=== PATIENT | female | born 1960 | race Caucasian/White ===

== ENCOUNTER 2018-04-30 20:32 | Emergency (ER) | payer MEDICAID ==
[2018-04-30 21:08] VITALS: PULSE 74; TEMP 98.3
--- NOTE | 2018-04-30 22:48 | ED PDOC ---
HPI: Abdomen Time Seen by Provider: 04/30/18 22:44 Chief Complaint (Nursing): Abdominal Pain Chief Complaint (Provider): abd pain History Per: Patient (58 y/o female h/o repair of abdominal wall hernia 7 years ago here with N/V/abdominal pain in area mid abdomen on and off x 4 days. States she recently completed 10 days of antibiotics for sinus infection otherwise.) Past Medical History Reviewed: Historical Data, Nursing Documentation, Vital Signs Vital Signs: Last Vital Signs Temp 98.3 F 04/30/18 21:05 Pulse 74 04/30/18 21:05 Resp 18 04/30/18 21:05 BP 167/83 H 04/30/18 21:05 Pulse Ox 99 04/30/18 21:05 - Medical History PMH: HTN - Surgical History Surgical History: Hernia Repair - Family History Family History: States: No Known Family Hx - Immunization History Hx Tetanus Toxoid Vaccination: No Hx Influenza Vaccination: No Hx Pneumococcal Vaccination: No - Home Medications Home Medications: Ambulatory Orders Medication Instructions Recorded Albuterol Sulfate [Ventolin Hfa] 2 puff IH Q6H PRN #0 ml 05/23/15 Cholecalciferol [Vitamin D] 2,000 unit PO DAILY #0 tab 05/23/15 Lisinopril/Hydrochlorothiazide 1 tab PO DAILY #0 tab 05/23/15 [Lisinopril-Hctz 10-12.5 mg Tab] predniSONE [Prednisone] 40 mg PO DAILY #10 tab 05/23/15 Docusate Sodium [Colace] 100 mg PO BID #20 capsule 05/01/18 Famotidine [Pepcid] 20 mg PO BID #10 tab 05/01/18 Phosphate Enema [Fleet Enema 135 135 ml RC ONCE PRN #1 nma 05/01/18 Ml] - Allergies Allergies/Adverse Reactions: Allergies Allergy/AdvReac Type Severity Reaction Status Date / Time No Known Allergies Allergy Verified 08/21/14 15:43 Review of Systems ROS Statement: Except As Marked, All Systems Reviewed And Found Negative Physical Exam - Reviewed Nursing Documentation Reviewed: Yes Vital Signs Reviewed: Yes - Physical Exam Appears: Positive for: Well, Non-toxic, No Acute Distress Head Exam: Positive for: ATRAUMATIC, NORMAL INSPECTION, NORMOCEPHALIC Skin: Positive for: Normal Color, Warm, DRY Eye Exam: Positive for: EOMI, Normal appearance, PERRL ENT: Positive for: Normal ENT Inspection Neck: Positive for: Normal, Painless ROM Cardiovascular/Chest: Positive for: Regular Rate, Rhythm Respiratory: Positive for: CNT, Normal Breath Sounds Gastrointestinal/Abdominal: Positive for: Normal Exam, Soft, Tenderness (epigastric/ mid abdominal tenderness.) Back: Positive for: Normal Inspection Extremity: Positive for: Normal ROM Neurologic/Psych: Positive for: Alert, Oriented - Laboratory Results Result Diagrams: 04/30/18 23:24 04/30/18 23:24 - ECG O2 Sat by Pulse Oximetry: 99 - Progress ED Course And Treament: PEPCID 20 MG IV X 1 DOSE ZOFRAN 4 MG IV X 1 DOSE NS 1 LITER 500ML IV PER HOUR PREPPED FOR CT ABD/PELVIS BLADDER SCAN NOTES 299 CC URINE. PATIENT STATES SHE HAD TO HOLD URINE DURING TEST BUT WOULD LIKE TO URINATE AND HAS NO DIFFICULTY DOING SO. URINE DIP (+) TRACE LEUK (-) BLOOD (-) NITRATE URINE CX SENT RESULTS D/W PATIENT WHO FEELS IMPROVED. Medical Decision Making Medical Decision Making: Time: 2:08 CT abd/Pelvis COMMENTS: The liver is of uniform attenuation without mass or defect. There is no intra or extrahepatic biliary ductal dilatation. The spleen is normal. The gallbladder is within normal limits. The pancreas is of normal contour and attenuation characteristics. There is no evidence of adrenal mass. Both kidneys demonstrate prompt and equal nephrograms. The kidneys are normal in size, shape and configuration. There is no evidence of renal or ureteral mass. No renal or ureteral calculi are identified. There is no hydroureter or hydronephrosis. No evidence for appendicitis. There is no bowel wall thickening. No evidence for small or large bowel obstruction. There is no evidence of abdominal ascites or lymphadenopathy. Moderate amount of fecal residue is noted in the large bowel. There is no evidence of intrinsic or extrinsic bladder mass. There is no pelvic ascites or lymphadenopathy. Distended bladder. Images of the lung bases show no evidence of pleural or parenchymal mass. There are no pleural effusions. The bony structures are free of lytic or blastic lesions. IMPRESSION: Moderate constipation. Distended bladder suggestive of retention. No evidence of bowel obstruction. No evidence of acute abdominal or pelvic pathology. Disposition - Clinical Impression Clinical Impression: Gastritis, Constipation - Patient ED Disposition Is Patient to be Admitted: No - Disposition Disposition: Routine/Home Disposition Time: 03:54 Condition: FAIR Prescriptions: Docusate Sodium [Colace] 100 mg PO BID #20 capsule Famotidine [Pepcid] 20 mg PO BID #10 tab Phosphate Enema [Fleet Enema 135 Ml] 135 ml RC ONCE PRN #1 nma PRN Reason: Constipation Instructions: Gastritis, Constipation in Adults Forms: [facility] ED School/Work Excuse
[2018-04-30] MEDS ORDERED: Iohexol 240 (50 ml) PO ONE (22:50)
[2018-04-30] MEDS ORDERED: Sodium Chloride 0.9% 1,000 ML IV STA (22:50)
[2018-04-30] MEDS ORDERED: Iohexol 240 (50 ml) ONE (23:11)
[2018-04-30 23:36] LABS: ALB/GLOB RATIO 1.1 (1.0-2.1); ALBUMIN 4.2 g/dL (3.5-5.0); ALT/SGPT 35 U/L (9-52); AST/SGOT 30 U/L (14-36); BLOOD UREA NITROGEN 19 mg/dl (7-17); CALCIUM 9.6 mg/dL (8.4-10.2); GFR NON-AFRICAN AMERICAN > 60; LIPASE 103 U/L (23-300)
[2018-04-30 23:59] LABS: BASO % 0.3 % (0.0-2.0); EOS # 0.8 K/uL (0.0-0.7); EOS % 7.3 % (0.0-4.0); HEMOGLOBIN 12.7 g/dL (12.0-16.0); LYMPH # 3.7 K/uL (1.0-4.3); LYMPH % 34.6 % (20.0-40.0); MEAN CORPUSCULAR HEMOGLOBIN 30.3 pg (27.0-31.0); MEAN CORPUSCULAR HGB CONC 32.9 g/dL (33.0-37.0); MEAN PLATELET VOLUME 7.4 fl (7.2-11.7); MONO # 0.6 K/uL (0.0-0.8); MONO % 5.8 % (0.0-10.0); NEUT # 5.6 K/uL (1.8-7.0); RBC 4.2 Mil/uL (3.80-5.20); RED CELL DISTRIBUTION WIDTH 12.1 % (11.5-14.5); WHITE BLOOD COUNT 10.8 K/uL (4.8-10.8)
[2018-05-01] MEDS ORDERED: Iohexol 300 100 ML IJ ONE (01:12)
[2018-05-01] MEDS ORDERED: Sodium Chloride 0.9% 50 ML IV ONE (01:12)
[2018-05-01 05:10] VITALS: BP 119/78; RESP 16; O2SAT 100
--- NOTE | 2018-05-01 13:05 | CT ---
Date of service: 05/01/2018 PROCEDURE: CT Abdomen and Pelvis with contrast HISTORY: r/o sbo COMPARISON: 09/18/2014 TECHNIQUE: Contrast dose: 90 mL Omnipaque 300 Radiation dose: Total exam DLP = 285.53 mGy-cm. This CT exam was performed using one or more of the following dose reduction techniques: Automated exposure control, adjustment of the mA and/or kV according to patient size, and/or use of iterative reconstruction technique. FINDINGS: LOWER THORAX: Unremarkable. LIVER: Unremarkable. No gross lesion or ductal dilatation. GALLBLADDER AND BILE DUCTS: Unremarkable. PANCREAS: Unremarkable. No gross lesion or ductal dilatation. SPLEEN: Unremarkable. ADRENALS: Unremarkable. No mass. KIDNEYS AND URETERS: Unremarkable. No hydronephrosis. No solid mass. VASCULATURE: Unremarkable. No aortic aneurysm. No aortic atherosclerotic calcification or mural plaque present. BOWEL: Mild retained feces. Possible constipation. APPENDIX: Normal appendix. PERITONEUM: Unremarkable. No free fluid. No free air. LYMPH NODES: Unremarkable. No enlarged lymph nodes. BLADDER: Unremarkable. REPRODUCTIVE: Unremarkable uterus BONES: No acute fracture. OTHER FINDINGS: None. IMPRESSION: Retained feces. Possible constipation. No evidence of bowel obstruction. No other significant abnormality is identified. The preliminary findings for this examination were reported by [facility] at 2:08 a.m. on 05/01/2018. There is concurrence of this report with the preliminary findings.
== END 2018-05-01 04:09 | disposition home or self-care (01) ==
LOC: H.ER 20:32
DX: K29.70 Gastritis, unspecified, without bleeding (principal); K59.00 Constipation, unspecified; I10 Essential (primary) hypertension; Z79.899 Other long term (current) drug therapy
CPT/HCPCS: 74177; 80053; 81025; 83690; 85025; 96374; 96375; 99284; J2405; J7030; Q9966; Q9967

== ENCOUNTER 2018-06-07 21:06 | Emergency (ER) | payer MEDICAID ==
--- NOTE | 2018-06-07 22:36 | ED PDOC ---
HPI: CCC, URI, Sore Throat Time Seen by Provider: 06/07/18 21:19 Chief Complaint (Nursing): ENT Problem Chief Complaint (Provider): swollen glands and sore throat History Per: Patient History/Exam Limitations: no limitations Onset/Duration Of Symptoms: Days (x3) Current Symptoms Are (Timing): Still Present Location Of Pain: Throat Associated Symptoms: Sore Throat Additional Complaint(s): Analia Reeves is a 58 year old female, with a past medical history of HTN, who presents to the emergency department for evaluation of swollen glands and sore throat onset for x3 days. Patient states sore throat is better because she's been eating a lot of garlic. Patient reports at 14:30 she was cooking when she began feeling pain to the right side of her upper neck that radiates down her right arm and upper part of her back. Patient also reports a pain "in her lungs" which makes it more atypical to raise her arm above her head and states she feels her arm "more lazy than the other arm." She denies any significant weakness or numbness, vision changes or slurred speech. No further medical complaints. PMD: Fadi Shook Past Medical History Reviewed: Historical Data, Nursing Documentation, Vital Signs Vital Signs: Last Vital Signs Temp 98.8 F 06/07/18 21:11 Pulse 90 06/07/18 21:11 Resp 16 06/07/18 21:11 BP 129/80 06/07/18 21:11 Pulse Ox 98 06/07/18 21:11 - Medical History PMH: HTN - Surgical History Surgical History: Hernia Repair - Family History Family History: States: Unknown Family Hx - Immunization History Hx Tetanus Toxoid Vaccination: No Hx Influenza Vaccination: No Hx Pneumococcal Vaccination: No - Home Medications Home Medications: Ambulatory Orders Medication Instructions Recorded Albuterol Sulfate [Ventolin Hfa] 2 puff IH Q6H PRN #0 ml 05/23/15 Cholecalciferol [Vitamin D] 2,000 unit PO DAILY #0 tab 05/23/15 Lisinopril/Hydrochlorothiazide 1 tab PO DAILY #0 tab 05/23/15 [Lisinopril-Hctz 10-12.5 mg Tab] predniSONE [Prednisone] 40 mg PO DAILY #10 tab 05/23/15 Docusate Sodium [Colace] 100 mg PO BID #20 capsule 05/01/18 Famotidine [Pepcid] 20 mg PO BID #10 tab 05/01/18 Phosphate Enema [Fleet Enema 135 135 ml RC ONCE PRN #1 nma 05/01/18 Ml] Cyclobenzaprine [Cyclobenzaprine 10 mg PO BID #15 tab 06/08/18 HCl] Ibuprofen [Motrin Tab] 600 mg PO Q6 #30 tab 06/08/18 - Allergies Allergies/Adverse Reactions: Allergies Allergy/AdvReac Type Severity Reaction Status Date / Time No Known Allergies Allergy Verified 08/21/14 15:43 Review of Systems ROS Statement: Except As Marked, All Systems Reviewed And Found Negative Eyes: Negative for: Vision Change Musculoskeletal: Positive for: Neck Pain (right side), Arm Pain (right), Back Pain (upper ) Neurological: Negative for: Weakness, Numbness, Other (slurred speech) Physical Exam - Reviewed Nursing Documentation Reviewed: Yes Vital Signs Reviewed: Yes - Physical Exam Appears: Positive for: No Acute Distress Head Exam: Positive for: ATRAUMATIC, NORMAL INSPECTION, NORMOCEPHALIC Skin: Positive for: Normal Color, Warm, Dry Eye Exam: Positive for: Normal appearance, EOMI, PERRL ENT: Positive for: Normal ENT Inspection Neck: Positive for: Normal, Painless ROM, Supple Cardiovascular/Chest: Positive for: Regular Rate, Rhythm. Negative for: Murmur Respiratory: Positive for: Normal Breath Sounds. Negative for: Respiratory Distress Gastrointestinal/Abdominal: Positive for: Normal Exam, Soft. Negative for: Tenderness, Guarding, Rebound Back: Positive for: Other (Tenderness to palpation to posterior deltoid and upper parathoracic musculature) Extremity: Positive for: Normal ROM (Full ROM of right arm with no neurovascular deficits). Negative for: Tenderness, Deformity, Swelling Neurologic/Psych: Positive for: Alert, insulation nozzleman II-XII (intact), Oriented (x3), Cerebellar Tests (normal), Gait (steady). Negative for: Motor/Sensory Deficits, Aphasia, Facial Droop - ECG O2 Sat by Pulse Oximetry: 98 (RA) Pulse Ox Interpretation: Normal Medical Decision Making Medical Decision Making: Time: 21:19 A/P: 65 y/o female with history of HTN presenting with sore throat. Well appearing with normal vitals. Presentation most consistent with musculoskeletal pain, URI or viral pharyngitis. Presentation not consistent with acute CVA or dissection. Patient was concerned she had "walking pneumonia." Ordered CXR, rapid strep and treat symptomatically Initial Plan: --Chest two views (PA/LAT) [RAD] --Flexeril 10 mg PO --Tylenol 325 mg tab 600 mg PO --Rapid Strep Group A Antigen --Reevaluation 0000 --Workup negative --Patient has previous diagnosis of cervical radiculopathy, possibly acute on chronic presentation --Will advise NSAIDs, ice, rest, and followup with PMD and/or orthopedics --Advised to return to the ER if symptoms worsen or do not improve ----- Scribe Attestation: Documented by Sukhdev Segal, acting as a scribe for Fito Hernández MD. Provider Scribe Attestation: All medical record entries made by the Scribe were at my direction and pers onally dictated by me. I have reviewed the chart and agree that the record accurately reflects my personal performance of the history, physical exam, medical decision making, and the department course for this patient. I have also personally directed, reviewed, and agree with the discharge instructions and disposition. Disposition - Clinical Impression Clinical Impression: Cervical radiculopathy - Disposition Referrals: [facility] [Outside] Disposition: Routine/Home Disposition Time: 00:00 Condition: IMPROVED Prescriptions: Cyclobenzaprine [Cyclobenzaprine HCl] 10 mg PO BID #15 tab Ibuprofen [Motrin Tab] 600 mg PO Q6 #30 tab Instructions: Radiculopathy (DC) Forms: [employer] ([place])
[2018-06-08 01:32] VITALS: BP 122/78; PULSE 84; RESP 18; TEMP 98.4
[2018-06-08 05:02] VITALS: O2SAT 98
--- NOTE | 2018-06-08 13:43 | RAD ---
Date of service: 06/07/2018 HISTORY: "lung pain" COMPARISON: 05/22/2015. TECHNIQUE: Chest PA and lateral FINDINGS: LUNGS: No active pulmonary disease. PLEURA: No significant pleural effusion identified. No pneumothorax apparent. CARDIOVASCULAR: No aortic atherosclerotic calcification present. Normal cardiac size. No pulmonary vascular congestion. OSSEOUS STRUCTURES: No significant abnormalities. VISUALIZED UPPER ABDOMEN: Normal. OTHER FINDINGS: None. IMPRESSION: No active disease. No significant interval change compared to the prior examination(s). Concordant results with the preliminary interpretation rendered by the emergency department physician procedure.
== END 2018-06-08 00:50 | disposition home or self-care (01) ==
LOC: H.ER 21:06
DX: M54.12 Radiculopathy, cervical region (principal); I10 Essential (primary) hypertension